=== PATIENT | male | born 1960 | race Caucasian/White ===

== ENCOUNTER 2024-06-08 18:32 | Emergency (ER) | payer MEDICARE, MEDICAID ==
[~2024-06-08] VITALS: Ht 170.2 cm; Wt 86.0 kg
[~2024-06-08 18:32] MED LIST: ALBUTEROL SULFATE; AMLODIPINE5 MG OR; ASA LO-DOSE81 MG OR; ASPIRIN81 MG PO; ATORVASTATIN CA40 MG PO; BACTRIM DS1 TAB OR; BAYER LOW81 MG OR; DULCOLAX SS100 MG PO; DULCOLAX5 MG PO; FAMOTIDINE20 MG OR; FLEXERIL10 MG OR; HYDROCHLOROT12.5 M1 PO; HYDROCHLOROT25 MG OR; IMIPRAM HCL50 MG OR; IMIPRAMINE HCL50 MG PO; KEFLEX250 MG OR; LISINOPRIL PO; MEDDOSEPAK OR; METFORMIN HCL1000 MG PO; MORPHINE SUL30 M3 OR; MORPHINE SUL60 MG OR; NAPROXEN500 MG OR; OXYCODONE HCL30 MG PO; OXYCODONE5 M1 OR; OXYCONTIN10 MG PO; OXYCONTIN60 MG PO; PRINZIDE/ZESTOR1 TAB OR; PROAIR HFA IN; PROVENTIL INH17 GM IN; SOMA350 MG OR; SOMA350 MG PO; TIZANIDINE HCL4 M1 PO; TIZANIDINE4 MG PO; TRICOR145 MG OR; XANAX0.5 MG PO; ZESTORETIC 20/11 TAB OR
[2024-06-08 18:38] VITALS: BP 142/70
[2024-06-08] MEDS ORDERED: Diph, Acellular Pertussis, Tet 0.5 ML/VIAL (Tdap) SDV IM ONE (18:40)
[2024-06-08 18:45] VITALS: BP 132/67
[2024-06-08] MEDS ORDERED: KEFLEX500 MG PO (18:55)
[2024-06-08 18:57] VITALS: BP 132/67
== END 2024-06-08 18:53 | disposition home or self-care (01) ==
LOC: ED 18:32
PROC: 0HQKXZZ Repair Right Lower Leg Skin, External Approach (ICD-10-PCS; principal; 2024-06-08)
DX: S81.811A Laceration without foreign body, right lower leg, initial encounter (principal); I10 Essential (primary) hypertension; E11.9 Type 2 diabetes mellitus without complications; E78.5 Hyperlipidemia, unspecified; J43.9 Emphysema, unspecified; F17.200 Nicotine dependence, unspecified, uncomplicated; W22.09XA Striking against other stationary object, initial encounter; Y92.009 Unspecified place in unspecified non-institutional (private) residence as the place of occurrence of the external cause; Z79.84 Long term (current) use of oral hypoglycemic drugs
CPT/HCPCS: 90715

== ENCOUNTER 2024-06-21 13:44 | Emergency (ER) | payer MEDICARE, MEDICAID ==
[~2024-06-21] VITALS: Ht 170.2 cm; Wt 95.2 kg
[~2024-06-21 13:44] MED LIST changes: +KEFLEX500 MG PO
[2024-06-21 14:11] VITALS: BP 126/72
== END 2024-06-21 14:23 | disposition home or self-care (01) ==
LOC: ED 13:44
DX: S81.811D Laceration without foreign body, right lower leg, subsequent encounter (principal); I10 Essential (primary) hypertension; E11.9 Type 2 diabetes mellitus without complications; E78.5 Hyperlipidemia, unspecified; J43.9 Emphysema, unspecified; F17.200 Nicotine dependence, unspecified, uncomplicated; X58.XXXD Exposure to other specified factors, subsequent encounter; Z79.84 Long term (current) use of oral hypoglycemic drugs